=== PATIENT | female | born 1945 | race Caucasian/White ===

== ENCOUNTER 2017-05-20 11:57 | Observation (INO) | payer MEDICARE, MEDICAID, SELFPAY | END 2017-05-21 13:00 | disposition home or self-care (01) | PROVIDERS: Admitting Provider Internal Medicine Adolescent Medicine; Emergency Provider Family Medicine; Visit Provider Internal Medicine Adolescent Medicine | DX: J18.9 Pneumonia, unspecified organism (principal); I10 Essential (primary) hypertension; Z72.0 Tobacco use; Z95.820 Peripheral vascular angioplasty status with implants and grafts; I73.9 Peripheral vascular disease, unspecified; R06.09 Other forms of dyspnea; N39.0 Urinary tract infection, site not specified | CPT/HCPCS: 36415; 71010; 71020; 80048; 80053; 81001; 83605; 83880; 85025; 86609; 87040; 87086; 87088; 87186; 87205; 93005; 94640; 96361; 96365; 96367; 96375; 99285; G0378 ==

== ENCOUNTER → 2017-05-31 13:53 | Outpatient (CLI) | payer MEDICARE, MEDICAID, SELFPAY ==
[2017-05-31 16:26] LABS: Anion Gap 12.3 mEq/L (5-15); Blood Urea Nitrogen 14 mg/dL (7-18); Carbon Dioxide 27 mmol/L (21.0-32.0); Chloride 104 mmol/L (98-107); Creatinine,Serum 1.23 mg/dL (0.55-1.02); Estimated Glomerular Filt Rate 43 ml/min (>60); GFR (African American) 52 ML/MIN (>60); Glucose 88 mg/dL (74-106); Potassium 3.3 mmoL/L (3.5-5.1); Sodium 140 mmol/L (136-145)
== END ==
PROVIDERS: PCP Internal Medicine Adolescent Medicine; Visit Provider Internal Medicine Adolescent Medicine
DX: J18.9 Pneumonia, unspecified organism (principal); R94.4 Abnormal results of kidney function studies
CPT/HCPCS: 36415; 80048

== ENCOUNTER 2017-08-06 15:15 | Emergency (ER) | payer MEDICARE, MEDICAID, SELFPAY ==
[2017-08-06 15:16] VITALS: BP 137/85; PULSE 61; RESP 18; TEMP 36.4; O2SAT 98; BMI 21.9
--- NOTE | 2017-08-06 16:53 | HMH.EDGENADL ---
ED Disposition Clinical Impression: Chronic left hip pain Disposition: Home, Self-Care Condition on Discharge: Good Instructions: DI for Chronic Pain -- Adult Additional Instructions: Rx Medrol dosepak; plain Tylenol is cleared via the liver so you may try that over the counter. Continue to call your insurance company and new PCP regarding chronic pain issues; perhaps your insurance company could also help you get in to see a painting technician if they have one they could refer you to in the meantime; follow up with Dr. Tuttle for definitive replacement. Prescriptions: methylPREDNISolone [Medrol] 4 mg PO DAILY #1 tab.ds.pk Referrals: Provider,Referral, [Primary Care Provider] - - Critical Care Critical Care Time: No Attestation: On 08/06/17, the high probability of a clinically significant, sudden or life threatening deterioration of the following system(s) required my full and direct attention, intervention and personal management. The time I documented below is in addition to time spent performing reported procedures but includes the following listed in this critical care notation. Medical Decision Making - [place] Inquiry Pt receiving controlled substance: No (d/w pt cannot refill chronic pain medications needs f/u PCP; offered Medrol) Vital Signs: 08/06/17 15:16 Temperature 97.6 F Temperature Source Oral Pulse Rate [Right Brachial] 61 Respiratory Rate 18 Blood Pressure [Right Arm] 137/85 Blood Pressure Mean [Right Arm] 102 Blood Pressure Source [Right Arm] Automatic Cuff Blood Pressure Position [Right Arm] Sitting 02 Sat by Pulse Oximetry 98 Oxygen Delivery Method Room Air General Adult HPI - General Chief complaint: PAIN Stated complaint: hip pain Time Seen by Provider: 08/06/17 16:00 Mode of Arrival: Ambulatory Source of Information: Patient Limitations: No Limitations Description of Symptoms (Recalled from ER Triage Doc. by RN): Pt reports L hip pain, pt reports is to have hip replacement. Pt reports has been being medicated per Dr. Koehler's office but recently switched insurances and was told that they do not accept her insurance. Pt reports contacted Dr. Barton's office but was told they could not prescribe her pain medication until after her surgery. Pt has been taking [place] 5/325 mg po BID, states has only been taking 0.5 tablet at time BID. - History of Present Illness HPI narrative: Chronic pain syndrome, out of [place], insurance issues requiring change of PCP and unable to get in for appointment; surgery for L hip delayed due to dental surgery; patient denies any acute problems but has chronic left hip pain. Due for replacement per Dr. Tuttle. - Related Data Home Medications Medication Instructions Recorded Confirmed Atenolol [Atenolol 50mg Tab] 50 mg PO DAILY 08/06/17 08/06/17 Clopidogrel Bisulfate [Plavix 75mg 75 mg PO DAILY 08/06/17 08/06/17 Tab] Hydrocodone/Acetaminophen 1 each PO BID 08/06/17 08/06/17 [Hydrocodone-Acetamin 5-325 mg] Lisinopril/Hydrochlorothiazide 1 tab PO DAILY 08/06/17 08/06/17 [Lisinopril-Hctz 10-12.5 mg Tab] Pravastatin Sodium [Pravachol] 20 mg PO HS 08/06/17 08/06/17 Trazodone HCl [Desyrel 50mg tablet] 50 mg PO HS 08/06/17 08/06/17 Previous Rx's Medication Instructions Recorded methylPREDNISolone [Medrol] 4 mg PO DAILY #1 tab.ds.pk 08/06/17 Allergies Allergy/AdvReac Type Severity Reaction Status Date / Time levofloxacin [From LEVAQUIN] Allergy Intermediate I-RASH Verified 08/06/17 15:34 codeine [CODEINE] Allergy Mild DIARRHEA, Verified 08/06/17 15:34 VOMITING [facility] History Medical History: Denies:: Diabetes Mellitus Type 1, Diabetes Mellitus Type 2 - Social History Smoking Status: Current some day smoker Tobacco Type: cigarettes Alcohol Intake: never - Psychiatric History Expresses thoughts of harming self/others: None Suicide Plan Description: No Plan ROS Obtained: Yes All systems reviewed & n
--- NOTE | 2017-08-06 16:57 | ED_ITS ---
ED Disposition Clinical Impression: Chronic left hip pain Disposition: Home, Self-Care Condition on Discharge: Good Instructions: DI for Chronic Pain -- Adult Additional Instructions: Rx Medrol dosepak; plain Tylenol is cleared via the liver so you may try that over the counter. Continue to call your insurance company and new PCP regarding chronic pain issues; perhaps your insurance company could also help you get in to see a shipyard painter if they have one they could refer you to in the meantime; follow up with Dr. Tuttle for definitive replacement. Prescriptions: methylPREDNISolone [Medrol] 4 mg PO DAILY #1 tab.ds.pk Referrals: Provider,Referral, [Primary Care Provider] - - Critical Care Critical Care Time: No Attestation: On 08/06/17, the high probability of a clinically significant, sudden or life threatening deterioration of the following system(s) required my full and direct attention, intervention and personal management. The time I documented below is in addition to time spent performing reported procedures but includes the following listed in this critical care notation. Medical Decision Making - [place] Inquiry Pt receiving controlled substance: No (d/w pt cannot refill chronic pain medications needs f/u PCP; offered Medrol) Vital Signs: 08/06/17 15:16 Temperature 97.6 F Temperature Source Oral Pulse Rate [Right Brachial] 61 Respiratory Rate 18 Blood Pressure [Right Arm] 137/85 Blood Pressure Mean [Right Arm] 102 Blood Pressure Source [Right Arm] Automatic Cuff Blood Pressure Position [Right Arm] Sitting 02 Sat by Pulse Oximetry 98 Oxygen Delivery Method Room Air General Adult HPI - General Chief complaint: PAIN Stated complaint: hip pain Time Seen by Provider: 08/06/17 16:00 Mode of Arrival: Ambulatory Source of Information: Patient Limitations: No Limitations Description of Symptoms (Recalled from ER Triage Doc. by RN): Pt reports L hip pain, pt reports is to have hip replacement. Pt reports has been being medicated per Dr. Koehler's office but recently switched insurances and was told that they do not accept her insurance. Pt reports contacted Dr. Barton's office but was told they could not prescribe her pain medication until after her surgery. Pt has been taking [place] 5/325 mg po BID, states has only been taking 0.5 tablet at time BID. - History of Present Illness HPI narrative: Chronic pain syndrome, out of [place], insurance issues requiring change of PCP and unable to get in for appointment; surgery for L hip delayed due to dental surgery; patient denies any acute problems but has chronic left hip pain. Due for replacement per Dr. Tuttle. - Related Data Home Medications Medication Instructions Recorded Confirmed Atenolol [Atenolol 50mg Tab] 50 mg PO DAILY 08/06/17 08/06/17 Clopidogrel Bisulfate [Plavix 75mg 75 mg PO DAILY 08/06/17 08/06/17 Tab] Hydrocodone/Acetaminophen 1 each PO BID 08/06/17 08/06/17 [Hydrocodone-Acetamin 5-325 mg] Lisinopril/Hydrochlorothiazide 1 tab PO DAILY 08/06/17 08/06/17 [Lisinopril-Hctz 10-12.5 mg Tab] Pravastatin Sodium [Pravachol] 20 mg PO HS 08/06/17 08/06/17 Trazodone HCl [Desyrel 50mg tablet] 50 mg PO HS 08/06/17 08/06/17 Previous Rx's Medication Instructions Recorded methylPREDNISolone [Medrol] 4 mg PO DAILY #1 tab.ds.pk 08/06/17 Allergies
[2017-08-06 17:06] VITALS: BP 142/83; PULSE 70; RESP 18; TEMP 36.6; O2SAT 99
== END 2017-08-06 17:05 | disposition home or self-care (01) ==
PROVIDERS: Emergency Provider Emergency Medicine
DX: M25.552 Pain in left hip (principal); I10 Essential (primary) hypertension; E78.5 Hyperlipidemia, unspecified; I73.9 Peripheral vascular disease, unspecified; N28.9 Disorder of kidney and ureter, unspecified; F41.8 Other specified anxiety disorders; Z88.1 Allergy status to other antibiotic agents; Z88.6 Allergy status to analgesic agent; F17.210 Nicotine dependence, cigarettes, uncomplicated
CPT/HCPCS: 99281

== ENCOUNTER → 2017-11-27 10:11 | Outpatient (POV) | payer MEDICARE, MEDICAID, SELFPAY ==
[2017-11-27 10:35] VITALS: BP 152/81; PULSE 61; RESP 18
--- NOTE | 2017-11-27 13:39 | HMH.PMCON ---
Assessment and Plan (1) Degenerative joint disease (DJD) of hip Current visit: Yes Status: Chronic Category: Medical Code(s): M16.9 - Osteoarthritis of hip, unspecified (2) Chronic left hip pain Current visit: No Status: Chronic Category: Medical Code(s): M25.552 - Pain in left hip; G89.29 - Other chronic pain - Assessment and plan all Dx Assessment and Plan for all problems:: We will schedule a left hip joint injection for the patient. I also gave her information on DRG stimulation. I will follow-up with this patient after her injection we will reassess her symptoms at that time. Patient states she will be returning to her PCP to discuss medication management. This note was dictated using voice recognition software and may contain errors or omissions HPI - Data of Consult Consult date: 11/27/17 Requesting Physician: Michaelle Carter APRN Primary Care Provider: Elmer Hyatt Family Provider: Iraj Koehler MD - Consult Narrative Reason for consult: Left hip pain History of present illness: Ms. Santoro is a 72 year old female who presents today for consultation in regards to her left hip pain. Patient states that her pain is a 7 out of 10 today. She states that walking, sitting for long periods increases her pain while rest decreases her pain. She states her pain is constant and achy in nature. Sometimes it is sharp. Patient had injections in the past with significant relief. Patient does not report any physical therapy. Patient was being seen by doctors in [place] however she felt they were not taking care of her the way she would like to have been. Patient is currently going to [place] for her primary care provider along with her surgeon. Patient states she is a surgical candidate with her left hip. And plans to do this in the fall. Patient states that she is in need of pain medication to help control her pain until then. Patient and I had a discussion that it is not our policy to do medication management. Patient understands. We did discuss potentially DRG stimulation to help with her hip pain postsurgically. Patient is interested in this and would like some information. Patient's currently on [place] 5 mg 1 p.o. 3 times daily from her primary care physician she states that she does have to take a tablet and a half and she runs out at times. Patient states she would like a stronger pain medication. Patient is also interested in moving forward with some injections in her left hip to help with the pain until surgery I believe that this would be beneficial for her. Is gotten good relief from injections in the past from Dr. Barton. CC: Michaelle Carter AUT[employer] MACHINIST [facility] History I have reviewed the patient's past medical history: Yes Medical History: Reports:: Aneurysm Denies:: Diabetes Mellitus Type 1, Diabetes Mellitus Type 2 Other Medical History: Reports: Arthritis - *Social History Smoking Status: Current every day smoker Tobacco Type: cigarettes Alcohol Intake: former Occupational Status: retired Housing: house - Psychiatric History Expresses thoughts of harming self/others: None Suicide Plan Description: No Plan *Family Hx:: No significant family history Review of Systems - Review of Systems ROS General: no recent weight change, no fever, no sleep disturbances Respiratory: no cough, no shortness of air, no recurring pulmonary infections Cardiovascular/Peripheral Vascular: No chest pain, No palpitations, no edema, no shortness of breath. Gastrointestinal: no incontinence, normal bowel movements reported Genitourinary: no incontinence Musculoskeletal: Left hip pain Psychiatric: normal mood/ affect Neurological: [denies weakness in extremities], [denies balance issues] Meds Home Medications Medication Instructions Recorded Confirmed Type Atenolol [Atenolol 50mg Tab] 50 mg PO DAILY 08/06/17 08/06/17 History Clopidogrel Bisulfate [Plavix 75mg 75 mg PO JOSE LUIS
--- NOTE | 2017-11-27 13:45 | P.CONS_ITS ---
Assessment and Plan (1) Degenerative joint disease (DJD) of hip Current visit: Yes Status: Chronic Category: Medical Code(s): M16.9 - Osteoarthritis of hip, unspecified (2) Chronic left hip pain Current visit: No Status: Chronic Category: Medical Code(s): M25.552 - Pain in left hip; G89.29 - Other chronic pain - Assessment and plan all Dx Assessment and Plan for all problems:: We will schedule a left hip joint injection for the patient. I also gave her information on DRG stimulation. I will follow-up with this patient after her injection we will reassess her symptoms at that time. Patient states she will be returning to her PCP to discuss medication management. This note was dictated using voice recognition software and may contain errors or omissions HPI - Data of Consult Consult date: 11/27/17 Requesting Physician: Michaelle Carter APRN Primary Care Provider: Elmer Hyatt Family Provider: Iraj Koehler MD - Consult Narrative Reason for consult: Left hip pain History of present illness: Ms. Santoro is a 72 year old female who presents today for consultation in regards to her left hip pain. Patient states that her pain is a 7 out of 10 today. She states that walking, sitting for long periods increases her pain while rest decreases her pain. She states her pain is constant and achy in nature. Sometimes it is sharp. Patient had injections in the past with significant relief. Patient does not report any physical therapy. Patient was being seen by doctors in [place] however she felt they were not taking care of her the way she would like to have been. Patient is currently going to [place] for her primary care provider along with her surgeon. Patient states she is a surgical candidate with her left hip. And plans to do this in the fall. Patient states that she is in need of pain medication to help control her pain until then. Patient and I had a discussion that it is not our policy to do medication management. Patient understands. We did discuss potentially DRG stimulation to help with her hip pain postsurgically. Patient is interested in this and would like some information. Patient's currently on [place] 5 mg 1 p.o. 3 times daily from her primary care physician she states that she does have to take a tablet and a half and she runs out at times. Patient states she would like a stronger pain medication. Patient is also interested in moving forward with some injections in her left hip to help with the pain until surgery I believe that this would be beneficial for her. Is gotten good relief from injections in the past from Dr. Barton. CC: Michaelle Carter TRAVELING NURSE [facility] History I have reviewed the patient's past medical history: Yes Medical History: Reports:: Aneurysm Denies:: Diabetes Mellitus Type 1, Diabetes Mellitus Type 2 Other Medical History: Reports: Arthritis - *Social History Smoking Status: Current every day smoker Tobacco Type: cigarettes Alcohol Intake: former Occupational Status: retired Housing: house - Psychiatric History Expresses thoughts of harming self/others: None Suicide Plan Description: No Plan *Family Hx:: No significant family history Review of Systems - Review of Systems ROS General: no recent weight change, no fever, no sleep disturbances Respiratory: no cough, no shortness of air, no recurring pulmonary infections Cardiovascular/Peripheral Vascular: No chest pain, No palpitations, no edema, no shortness of breath. Gastrointestinal: no incontinence, normal bowel movements reported Genitourina
--- NOTE | 2017-12-24 13:25 | PC.PHONENOTE ---
Pt called office to let us know that she will not be showing up to her appointment today because the steroid injection Dr. Dubois preformed on her did not work and she will not be returning to our clinic anymore.
== END ==
PROVIDERS: Family Provider Internal Medicine Adolescent Medicine; PCP Nurse Practitioner Family; Visit Provider Clinical Nurse Specialist Family Health
DX: M25.552 Pain in left hip (principal); M16.9 Osteoarthritis of hip, unspecified
CPT/HCPCS: 99202

== ENCOUNTER → 2018-01-22 13:03 | Outpatient (POV) | payer MEDICARE, MEDICAID, SELFPAY | PROVIDERS: Family Provider Internal Medicine Adolescent Medicine; PCP Nurse Practitioner Family; Visit Provider Internal Medicine | DX: Z00.00 Encounter for general adult medical examination without abnormal findings (principal) ==

== ENCOUNTER → 2018-02-13 15:11 | Outpatient (CLI) | payer MEDICARE, MEDICAID, SELFPAY ==
--- NOTE | 2018-02-13 15:14 | MM_ITS ---
MM Dig screening mamm BI w/CAD CAD Screening COMPARISON: Digital mammograms with CAD 03/27/2016 and 03/03/2014 INDICATION: There is a history of breast cancer patient's mother diagnosed at age 70. TECHNIQUE: Standard CC and MLO images were obtained. R2 CAD reviewed. FINDINGS: Prominent somewhat heterogenic fibroglandular densities are seen in the subareolar regions and central portions of both breasts. There are stable asymmetric densities outer quadrants of both breast best seen on the CC projections as noted previously. There are few benign-appearing calcifications in each breast. There is no suspicious lesion and there are no suspicious microcalcifications. IMPRESSION: Heterogenic breast density with no suspicious lesion seen BI-RADS Category: 2 Benign Finding(s) RECOMMENDED FOLLOW-UP: 1YR - 1 YEAR FOLLOW-UP (A letter has been sent to the patient regarding results of the study.)
== END ==
PROVIDERS: Family Provider Internal Medicine Adolescent Medicine; PCP Nurse Practitioner Family; Visit Provider Internal Medicine Infectious Disease
DX: Z12.31 Encounter for screening mammogram for malignant neoplasm of breast (principal)
CPT/HCPCS: 77067

== ENCOUNTER → 2018-04-23 14:10 | Outpatient (POV) | payer MEDICARE, MEDICAID, SELFPAY | PROVIDERS: Visit Provider Internal Medicine | DX: Z00.00 Encounter for general adult medical examination without abnormal findings (principal) ==

== ENCOUNTER 2018-06-11 09:50 | Inpatient (IN) ==
[2018-06-11 10:07] LABS: Basophils % 0.3 % (0.1-2.0); Eosinophils % 0.2 % (0.1-12.0); Hematocrit 44.9 % (37.0-47.0); Hemoglobin 14.4 g/dL (12.2-16.2); Lymphocytes # 0.9 K/mm3 (0.7-4.5); Lymphocytes % 6.8 % (10-50); Mean Corpuscular HGB Conc 32.1 g/dL (31.8-35.4); Mean Platelet Volume 7.6 fl (7.4-10.4); Monocytes # 0.5 K/mm3 (0.1-1.0); Monocytes % 3.7 % (1.7-9.3); Neutrophils # 12.4 K/mm3 (1.8-7.8); Platelet Count 218 K/mm3 (142-424); Red Blood Count 5.35 M/mm3 (4.20-5.40); Red Cell Distribution Width 16.1 % (11.5-17.5)
--- NOTE | 2018-06-11 10:09 | Emergency Department Note ---
ED Disposition Clinical Impression: Healthcare-associated pneumonia, Acute respiratory failure with hypoxia Disposition: Still a Patient Condition on Discharge: Fair Referrals: Provider,Referral, [Primary Care Provider] - - Critical Care Critical Care Time: Yes Attestation: On 06/11/18, the high probability of a clinically significant, sudden or life threatening deterioration of the following system(s) required my full and direct attention, intervention and personal management. The time I documented below is in addition to time spent performing reported procedures but includes the following listed in this critical care notation. Vital system(s) involved:: Respiratory Failure My critical care processes included: Assessment & monitoring of V/S, Initial and Re-exams, Data Review/Interpretation, Coordinating Care, Medication Orders and management, Documentation Medical Decision Making - [place] Inquiry Pt receiving controlled substance: No Vital Signs: 06/11/18 09:59 06/11/18 10:29 06/11/18 10:30 Temperature 98.5 F Temperature Source Oral Pulse Rate [Left Radial] 103 H Respiratory Rate 32 H Blood Pressure [Right Arm] 163/93 H Blood Pressure Mean [Right Arm] 116 Blood Pressure Source [Right Arm] Automatic Cuff Blood Pressure Position [Right Arm] Sitting 02 Sat by Pulse Oximetry 96 85 L 97 Oxygen Delivery Method Nasal Cannula Room Air Nasal Cannula Oxygen Flow Rate (LPM) 4 4 06/11/18 10:48 06/11/18 11:00 Temperature Temperature Source Pulse Rate [Left Radial] 99 H 98 H Respiratory Rate Blood Pressure [Right Arm] 148/90 H 148/90 H Blood Pressure Mean [Right Arm] 109 109 Blood Pressure Source [Right Arm] Automatic Cuff Automatic Cuff Blood Pressure Position [Right Arm] Supine Supine 02 Sat by Pulse Oximetry 95 96 Oxygen Delivery Method Oxygen Flow Rate (LPM) - Lab Data Lab Results 06/11/18 09:53: Specimen Source L brachial, O2 % 4 lpm, ABG pH 7.46 H, ABG pCO2 35.8, ABG pO2 69.8 L, ABG HCO3 25.0, ABG Total CO2 26.1, ABG O2 Saturation 94, ABG Base Excess 1.2 06/11/18 09:55: WBC 14.0 H, RBC 5.35, Hgb 14.4, Hct 44.9, MCV 84.0, MCH 27.0, MCHC 32.1, RDW 16.1, Plt Count 218, MPV 7.6, Neut % (Auto) 89.0 H, Lymph % (Auto) 6.8 L, [place] % (Auto) 3.7, Eos % (Auto) 0.2, Baso % (Auto) 0.3, Neut # (Auto) 12.4 H, Lymph # (Auto) 0.9, [place] # (Auto) 0.5, Eos # (Auto) 0.0, Baso # (Auto) 0.0, Total Counted 100, Neutrophils % (Manual) 88 H, Lymphocytes % (Manual) 7 L, Monocytes % (Manual) 5, Platelet Estimate Normal, Hypochromasia 1+ 06/11/18 09:55: Sodium 132 L, Potassium 3.4 L, Chloride 94 L, Carbon Dioxide 26, Anion Gap 15.4 H, BUN 14, Creatinine 0.85, Estimated Creat Clear 40, Estimated GFR 66, Est GFR ( Amer) 80, Glucose 121 H, Calcium 9.9, Troponin I < 0.02 06/11/18 09:55: Total Bilirubin 0.9, Direct Bilirubin 0.3 H, Indirect Bilirubin 0.6, AST 18, ALT 14, Alkaline Phosphatase 117 H, Total Protein 7.1, Albumin 3.1 L 06/11/18 09:55: B-Natriuretic Peptide 563 H 06/11/18 10:37: Lactate 2.9 H Result diagrams: 06/11/18 09:55 06/11/18 09:55 Orders (Tests/Meds): ED MEDICATIONS Generic Name Dose Route Start Last Admin Trade Name Freq PRN Reason Stop Dose Admin Albuterol/Ipratropium 3 ml 06/11/18 14:00 Duoneb 3ml Neb IH 07/11/18 13:59 QIDRT BEE Cefepime HCl 2 gm/ Sodium 100 mls @ 200 mls/hr 06/11/18 11:00 06/11/18 10:57 Chloride IV 06/25/18 10:59 200 mls/hr Q12H BEE Administration Protocol Vancomycin HCl 750 mg/ Sodium 250 mls @ 125 mls/hr 06/11/18 11:00 Chloride IV 06/25/18 10:59 Q24H BEE Discontinued Medications Generic Name Dose Route Start Last Admin Trade Name Freq PRN Reason Stop Dose Admin Enoxaparin Sodium 50 mg 06/11/18 10:47 Lovenox 60mg/0.6ml Syringe SQ 06/11/18 10:48 ONCE ONE Iopamidol 75 ml 06/11/18 11:16 06/11/18 11:16 [id number]; 75ml Vial IV 06/11/18 11:17 75 ml ONCE ONE Administration Protocol Miscellaneous 1 each 06/11/18 11:00 Vancomycin Consult Request NOTAPPLIC 06/11/18 22:47 [facility] Sodium Chloride 10 ml 06/11/18 11:16 06/11/18 11:16 Rad-Saline Flush 10ml Syringe IV 06/11/18 11:17 10 ml ONCE ONE Administration ORDERS Category Date Time Status Blood Culture Stat Micro 06/11/18 10:37 Received ECG Request by /Alexis Stat Y 06/11/18 09:51 Ordered - Radiology Data #1 Image(s): Chest Image Reviewed: Yes I reviewed the patient's radiology image, Yes I discussed the image results w/the radiologist New airspace disease left upper lobe. Increased interstitial markings in the bases, small right pleural effusion. Most consistent with pneumonia. - CT Data CT Scan: Chest (CTA) Time Received: 12:[address] Reviewed: Yes: I have viewed the radiologist's interpretation Findings Narrative: IMPRESSION: 1. No evidence of pulmonary embolus or thoracic aortic aneurysm. 2. 3.5 cm infrarenal abdominal aortic aneurysm incompletely imaged. 3. 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 There is increased density in the peribronchial region in the hilar area on both sides. This could be inflammatory or neoplastic. 4. Medium right pleural effusion with consolidation in both lung bases posteriorly 5. Enlarging pleural-based lesion in the left upper lobe anteriorly now with some cavitation. This could be neoplastic or infectious in nature. Dictated By: Alfonzo Darden MD Signed By: <Electronically signed by Alfonzo Darden MD in [place]> 06/11/18 1139 - ECG Data Tracing #1 EKG interpreted by Reza Hylton MD: Rhythm: sinus Rate: 98 [place]: normal Ectopy: none Conduction: Prolonged QT ST Segment Changes: Nonspecific T Wave Changes: Nonspecific Q Waves: none Poor R wave progression - Physician Consults Physician Consulted: Sound Time: 10:48 Reason -: Admission Comment/Response: Agrees to admit the patient to the hospital. We discussed the patient's clinical information, including history, exam, laboratory and radiology results and ED course. Per hospital procedure, I will write temporary bridge inpatient orders on the patient. Specific orders requested by the admitting physician: CTA scan pending at this time. Requests a loading dose of Lovenox pending CT results. Cefepime and vancomycin. - Reevaluation(s) Time: 10:31 Reevaluation #1: Discussed diagnosis of pneumonia with patient. I recommended admission. She prefers to be discharged. I advised her that this was hospital associated pneumonia and should be treated as an inpatient with IV antibiotics. I also took her off of oxygen and her pulse ox dropped to 84%. I put her back on oxygen. She is agreeable to admission. Medical Decision Narrative: Discharge summary obtained from [facility]. Final diagnoses were pericardial effusion and protein energy malnutrition. CT chest was negative. Autoimmune workup was negative. She had an episode of atrial fibrillation with rapid ventricular response. Pericardiocentesis was performed and she had a drain placed which was later removed. Fluid on cytology was positive for adenocarcinoma versus transitional cell. Hospitalized for 6 days. General Adult HPI - General Chief complaint: Shortness of Breath/Dyspnea Stated complaint: sob Time Seen by Provider: 06/11/18 10:00 Mode of Arrival: EMS Limitations: No Limitations Description of Symptoms (Recalled from ER Triage Doc. by RN): to ed per squad with c/o sob, productive cough with green sputum, chills x 2months. squad called today due to progressive generalized weakness, fatique. pt dx with bladder ca 2 weeks ago. - History of Present Illness HPI narrative: Brought in by ambulance. Chief complaint is shortness of breath. Says this is been going on for a couple of months. Also has had a cough for a long time, productive of sputum, no hemoptysis. Denies chest pain or fever. Denies vomiting or diarrhea. Feels generally weak and tired. Seen by me in this emergency department on 03/31/18 and transferred to [facility]. She had pneumonia, pleural effusion, pericardial effusion. She says that the fluid was drained off of her heart. She was diagnosed with bladder cancer. She is not certain whether she has any metastases to heart/pericardium or lung. She says she was supposed to have her first dose of chemotherapy yesterday, but could not because she was too sick. She goes to the [facility]. Her primary care doctor is Dr. Wilburn in [place]. No leg pain or swelling. No urinary symptoms. - Related Data Home Medications Medication Instructions Recorded Confirmed Atenolol [Atenolol 50mg Tab] 50 mg PO DAILY 08/06/17 06/11/18 Clopidogrel Bisulfate [Plavix 75mg 75 mg PO DAILY 08/06/17 06/11/18 Tab] Lisinopril/Hydrochlorothiazide 1 tab PO DAILY 08/06/17 06/11/18 [Lisinopril-Hctz 10-12.5 mg Tab] Trazodone HCl [Desyrel 50mg tablet] 50 mg PO HS 08/06/17 06/11/18 Atorvastatin Calcium [Atorvastatin 40 mg PO DAILY 06/11/18 06/11/18 40mg Tab] Pantoprazole Sodium [Protonix 40mg 40 mg PO DAILY 06/11/18 06/11/18 tablet] Allergies Allergy/AdvReac Type Severity Reaction Status Date / Time levofloxacin [From LEVAQUIN] Allergy Intermediate I-RASH Verified 08/15/17 13:53 codeine [CODEINE] Allergy Mild DIARRHEA, Verified 08/15/17 13:53 VOMITING [facility] History - Hepatitis A Screen Drug use history?: No High risk sexual behaviors?: No History of sexually transmitted infection?: No Currently employed?: No Childcare worker?: No Do you have indoor plumbing?: Yes Do you have electricity?: Yes Attestation statement:: This patient has been screened for Hepatitis A risk factors. I have reviewed the patient's past medical history: Yes Medical History: Reports:: Aneurysm, Cancer (Bladder) Denies:: Diabetes Mellitus Type 1, Diabetes Mellitus Type 2, Seizures Other Medical History: Reports: Arthritis Laterality Cases: Right: Other Other Surgeries: Yes: Appendectomy, Cholecystectomy, Tubal Ligation, Other (stent in RLE) Amputation: No Fractures: No - Social History Smoking Status: Current every day smoker Tobacco Type: cigarettes # Packs/Day (cigarettes): 1 Alcohol Intake: never Alcohol Intake Frequency:: holidays/special occasions only Occupational Status: retired Housing: house - Psychiatric History Expresses thoughts of harming self/others: None Suicide Plan Description: No Plan Family Hx:: No significant family history ROS Obtained: Yes All systems reviewed & no additional complaints - Constitutional Constitutional: Reports fatigue, Denies fever(s), Reports malaise - ENT Ears, Nose, Mouth, and Throat: Reports nasal discharge - Cardiovascular Cardiovascular: Denies chest pain - Respiratory Respiratory: Yes cough, Yes dyspnea, Yes excessive phlegm production, No coughing up blood - Gastrointestinal Gastrointestingal: Reports: constipation. Denies: abdominal pain, diarrhea, nausea, vomiting - Genitourinary Female Genitourinary: Denies difficulty voiding Physical Exam - General General appearance: alert, in no apparent distress - Head Head exam: atraumatic, normocephalic - Eye Eye exam: Present: normal appearance, PERRL, EOMI - ENT ENT exam: Present: mucous membranes moist - Neck Neck exam: Present: normal inspection, trachea midline - Chest Chest inspection: Present: normal inspection, symmetric chest wall rise - Respiratory Respiratory exam: Present: other (crackles) - Cardiovascular Cardiovascular exam: Present: normal rhythm, tachycardia, normal heart sounds - Abdominal Exam Abdominal exam: Present: soft. Absent: distention, tenderness - Extremities Exam Extremities exam: Present: normal inspection, other (Cyanosis of left index finger. States it has been that way for some time. It was that way when she was seen at [facility] a week and a half ago.). Absent: pedal edema, calf tenderness - Neurological Exam Neurological exam: Present: alert, oriented X3 - Psychiatric Psychiatric exam: Present: normal affect, normal mood - Skin Skin exam: Present: warm, dry
[2018-06-11 10:20] LABS: ABG Base Excess 1.2 mmol/L (-2.4-2.3); ABG Oxygen Saturation 94 % (90-100); ABG PCO2 35.8 mmhg (35.0-45.0); ABG PH 7.46 mmol/L (7.35-7.45); ABG PO2 69.8 mmhg (80-100); ABG TCO2 26.1 mmhg (23-27)
[2018-06-11 10:21] LABS: Oxygen 4 LPM %
[2018-06-11 10:26] LABS: Anion Gap 15.4 mEq/L (5-15); Blood Urea Nitrogen 14 mg/dL (7-18); Calcium 9.9 mg/dL (8.5-10.1); Carbon Dioxide 26 mmol/L (21.0-32.0); Chloride 94 mmol/L (98-107); Glucose 121 mg/dL (74-106); Potassium 3.4 mmoL/L (3.5-5.1); Sodium 132 mmol/L (136-145)
[2018-06-11 10:33] LABS: Albumin Level 3.1 gm/dL (3.4-5.0); Bilirubin,Direct 0.3 mg/dL (0.0-0.2); Bilirubin,Indirect 0.6 mg/dL (0.0-0.9); Bilirubin,Total 0.9 mg/dL (0.2-1.0); Total Protein,Serum 7.1 gm/dL (6.4-8.2)
[2018-06-11 10:46] LABS: Lymphocytes % 7 % (10-50); Monocytes % 5 % (2-9); Neutrophils % 88 % (42-76); Total Cells Counted 100
[2018-06-11 10:47] LABS: Hypochromasia 1+
--- NOTE | 2018-06-11 11:12 | Pharmacy Consult Notes ---
- Pharmacy Consult Date: 06/11/18 Time: 11:07 Referring provider: DR. IGLESIAS Reason for Consult:: VANCOMYCIN DOSING Allergies and ADEs:: Allergies Allergy/AdvReac Type Severity Reaction Status Date / Time levofloxacin [From LEVAQUIN] Allergy Intermediate I-RASH Verified 08/15/17 13:53 codeine [CODEINE] Allergy Mild DIARRHEA, Verified 08/15/17 13:53 VOMITING Home Medications:: Home Medications Medication Instructions Recorded Confirmed Type Atenolol [Atenolol 50mg Tab] 50 mg PO DAILY 08/06/17 06/11/18 History Clopidogrel Bisulfate [Plavix 75mg 75 mg PO DAILY 08/06/17 06/11/18 History Tab] Lisinopril/Hydrochlorothiazide 1 tab PO DAILY 08/06/17 06/11/18 History [Lisinopril-Hctz 10-12.5 mg Tab] Trazodone HCl [Desyrel 50mg tablet] 50 mg PO HS 08/06/17 06/11/18 History Atorvastatin Calcium [Atorvastatin 40 mg PO DAILY 06/11/18 06/11/18 History 40mg Tab] Pantoprazole Sodium [Protonix 40mg 40 mg PO DAILY 06/11/18 06/11/18 History tablet] Height: 1.68 m Weight: 49.895 kg Laboratory Results:: Laboratory Results - last 24 hr 06/11/18 09:53: Specimen Source L brachial, O2 % 4 lpm, ABG pH 7.46 H, ABG pCO2 35.8, ABG pO2 69.8 L, ABG HCO3 25.0, ABG Total CO2 26.1, ABG O2 Saturation 94, ABG Base Excess 1.2 06/11/18 09:55: WBC 14.0 H, RBC 5.35, Hgb 14.4, Hct 44.9, MCV 84.0, MCH 27.0, MCHC 32.1, RDW 16.1, Plt Count 218, MPV 7.6, Neut % (Auto) 89.0 H, Lymph % (Auto) 6.8 L, [place] % (Auto) 3.7, Eos % (Auto) 0.2, Baso % (Auto) 0.3, Neut # (Auto) 12.4 H, Lymph # (Auto) 0.9, [place] # (Auto) 0.5, Eos # (Auto) 0.0, Baso # (Auto) 0.0, Total Counted 100, Neutrophils % (Manual) 88 H, Lymphocytes % (Manual) 7 L, Monocytes % (Manual) 5, Platelet Estimate Normal, Hypochromasia 1+ 06/11/18 09:55: Sodium 132 L, Potassium 3.4 L, Chloride 94 L, Carbon Dioxide 26, Anion Gap 15.4 H, BUN 14, Creatinine 0.85, Estimated Creat Clear 40, Estimated GFR 66, Est GFR ( Amer) 80, Glucose 121 H, Calcium 9.9, Troponin I < 0.02 06/11/18 09:55: Total Bilirubin 0.9, Direct Bilirubin 0.3 H, Indirect Bilirubin 0.6, AST 18, ALT 14, Alkaline Phosphatase 117 H, Total Protein 7.1, Albumin 3.1 L 06/11/18 09:55: B-Natriuretic Peptide 563 H Medical History: Reports:: Aneurysm, Cancer (Bladder) Denies:: Diabetes Mellitus Type 1, Diabetes Mellitus Type 2, Seizures Assessment and Plan - Assessment and plan all Dx Assessment and Plan for all problems:: BASED ON PATIENT FACTORS, RECOMMEND INITIATING VANCOMYCIN AT 750MG IV EVERY 24 HOURS. PHARMACY WILL MONITOR AND ADJUST DOSE APPROPRIATE. -NAWAF HOFFMAN, SUNSHINED
--- NOTE | 2018-06-11 12:12 | History & Physical Report ---
*Admission Date: 06/11/18 <Shagufta Rodrigez - 06/11/18 13:48> *Chief complaint: Shortness of breath <Shagufta Rodrigez - 06/11/18 13:48> *History of present illness: Ms. Santoro is a 73-year-old female with a history of PMH of HTN, COPD, recent unintentional weight loss, and recent hospitalization in March 2018 at [facility] at which time she had a pericardiocentesis with positive cytology for adenocarcinoma versus transitional cell carcinoma who was brought in by ambulance to [facility] emergency room due to progressive shortness of breath and productive cough. She relates that the cough has been present for a long time and is productive of sputum but no hemoptysis. She denies chest pain or fever, vomiting or diarrhea. She generally feels weak and tired. She states she has not been eating and drinking very well for the last few weeks. She was seen in this emergency department on 03/31/18 and transferred to [facility]. She had pneumonia, pleural effusion, pericardial effusion. She says that the fluid was drained off of her heart. She was diagnosed with bladder cancer. She is not certain whether she has any metastases to heart/pericardium or lung. She says she was supposed to have her first dose of chemotherapy yesterday, but could not because she was too sick. She is going to the [facility]. Her primary care doctor is Dr. Wilburn in [place]. No leg pain or swelling. No urinary symptoms. The ER physician discussed diagnosis of pneumonia with the patient and recommended admission. Initially she preferred to be discharged. She was advised that she had a hospital associated pneumonia and needed to be treated as an inpatient with IV antibiotics. Her was removed temporarily O2 saturation dropped to 84%. She was then agreeable to admission. Discharge summary was obtained from [facility]. Final diagnoses were pericardial effusion and protein energy malnutrition. CT chest was negative. Autoimmune workup was negative. She had an episode of atrial fibrillation with rapid ventricular response. Pericardiocentesis was performed and she had a drain placed which was later removed. Fluid on cytology was positive for adenocarcinoma versus transitional cell. She was hospitalized for 6 days. At the time of this exam the patient has labored respiratory effort. She is unable to speak at times due to the shortness of breath. The congested cough was noted. She denies chest pain, heart palpitations, leg edema, nausea and vomiting. She has been voiding without difficulty. <Shagufta Rodrigez 06/11/18 13:48> [facility] History Medical History: Reports:: Aneurysm, Atrial Fibrillation (Brief and intermittent), Cancer (Bladder), Chronic Obstructive Pulmonary Disease (COPD), Hypertension, Peripheral Vascular Disease Denies:: Diabetes Mellitus Type 1, Diabetes Mellitus Type 2, Seizures <Shagufta Rodrigez 06/11/18 13:48> Have you ever received a pneumonia vaccine?: Yes <Shagufta Rodrigez 06/11/18 12:12> Have you received a flu vaccine this season?: Yes <Shagufta Rodrigez 06/11/18 12:12> Other Medical History: Reports: Arthritis <Shagufta Rodrigez 06/11/18 13:48> Laterality Cases: Right: Other <Shagufta Rodrigez 06/11/18 12:12> Other Surgeries: Yes: Appendectomy, Cholecystectomy, Tubal Ligation, Other (stent in RLE) <Shagufta Rodrigez 06/11/18 12:12> Amputation: No <Shagufta Rodrigez 06/11/18 12:12> Fractures: No <Shagufta Rodrigez 06/11/18 12:12> - *Social History Educational Level: Completed College (Degree in marketing and business) <Shagufta Rodrigez 06/11/18 13:48> Smoking Status: Current every day smoker <Shagufta Rodrigez 06/11/18 12:12> Tobacco Type: cigarettes <Shagufta Rodrigez 06/11/18 12:12> # Packs/Day (cigarettes): 1 <Shagufta Rodrigez 06/11/18 12:12> Alcohol Intake: never <Shagufta Rodrigez 06/11/18 12:12> Alcohol Intake Frequency:: holidays/special occasions only <Shagufta Rodrigez 06/11/18 12:12> Occupational Status: retired <Shagufta Rodrigez 06/11/18 12:12> Housing: house <Shagufta Rodrigez 06/11/18 12:12> Travel in the last 8 weeks: None <Shagufta Rodrigez 06/11/18 12:12> - Psychiatric History Expresses thoughts of harming self/others: None <Shagufta Rodrigez 06/11/18 12:12> Suicide Plan Description: No Plan <Shagufta Rodrigez 06/11/18 12:12> *Family Hx:: Coronary Artery Disease <Shagufta Rodrigez 06/11/18 13:48> Review of Systems - Constitutional Reports lack of energy, Reports weakness, Reports weight loss, Denies fever(s) <Shagufta Rodrigez 06/11/18 13:48> - ENT Denies ear pain, Denies sore throat <Shagufta Rodrigez 06/11/18 13:48> - *Cardiovascular Reports shortness of breath, Denies chest pain, Denies irregular heart rhythm, Denies leg swelling <Shagufta Rodrigez 06/11/18 13:48> - *Respiratory Reports change in phlegm color, Reports chest congestion, Reports cough (Congested), Reports shortness of breath, Denies coughing up blood <Shagufta Rodrigez 06/11/18 13:48> - *Gastrointestinal Reports nausea, Denies abdominal pain, Denies vomiting <Shagufta Rodrigez 06/11/18 13:48> - *Genitourinary Denies difficulty urinating, Denies painful urination <Shagufta Rodrigez 06/11/18 13:48> - *Musculoskeletal Reports muscle weakness <Shagufta Rodrigez 06/11/18 13:48> - *Neurologic Reports weakness, Denies seizure-like activity, Denies headache(s) <Shagufta Rodrigez 06/11/18 13:48> Meds Home Medications Medication Instructions Recorded Confirmed Type Clopidogrel Bisulfate [Plavix 75mg 75 mg PO DAILY 08/06/17 06/11/18 History Tab] Lisinopril/Hydrochlorothiazide 1 tab PO DAILY 08/06/17 06/11/18 History [Lisinopril-Hctz 10-12.5 mg Tab] Trazodone HCl [Desyrel 50mg tablet] 50 mg PO HS 08/06/17 06/11/18 History Atenolol [Atenolol 25mg Tab] 25 mg PO DAILY 06/11/18 06/11/18 History Atorvastatin Calcium [Atorvastatin 40 mg PO DAILY 06/11/18 06/11/18 History 40mg Tab] Dexlansoprazole [Dexilant] 30 mg PO DAILY 06/11/18 06/11/18 History Montelukast Sodium [Montelukast 10 mg PO DAILY 06/11/18 06/11/18 History 10mg Tab] Pantoprazole Sodium [Protonix 40mg 40 mg PO DAILY 06/11/18 06/11/18 History tablet] Umeclidinium Brm/Vilanterol Tr 1 inh IH DAILY 06/11/18 06/11/18 History [Anoro Ellipta 62.5-25 Mcg INH] Venlafaxine HCl [Effexor Xr] 150 mg PO DAILY 06/11/18 06/11/18 History hydrOXYzine pamoate [Vistaril] 25 mg PO TID PRN 06/11/18 06/11/18 History <Sound,Colette - 06/12/18 11:39> Allergies Allergy/AdvReac Type Severity Reaction Status Date / Time levofloxacin [From LEVAQUIN] Allergy Intermediate I-RASH Verified 08/15/17 13:53 codeine [CODEINE] Allergy Mild DIARRHEA, Verified 08/15/17 13:53 VOMITING <Sound,Colette - 06/12/18 11:39> Exam Vital signs and Labs for Last 24 Hours: Temp Pulse Resp BP Pulse Ox 98.3 F 90 18 156/87 H 97 06/12/18 11:19 06/12/18 11:19 06/12/18 11:19 06/12/18 11:19 06/12/18 11:19 Laboratory Results - last 24 hr 06/11/18 15:07: Lactate 2.5 H 06/11/18 18:00: Lactate 3.2 H 06/12/18 08:21: WBC 9.8 D, RBC 4.53, Hgb 12.2 D, Hct 38.0, MCV 83.9, MCH 26.8 L, MCHC 31.9, RDW 16.1, Plt Count 216, MPV 8.0, Neut % (Auto) 86.5 H, Lymph % (Auto) 6.9 L, Hancock % (Auto) 5.5, Eos % (Auto) 0.9, Baso % (Auto) 0.2, Neut # (Auto) 8.5 H, Lymph # (Auto) 0.7, Hancock # (Auto) 0.5, Eos # (Auto) 0.1, Baso # (Auto) 0.0, Total Counted 100, Neutrophils % (Manual) 89 H, Band Neutrophils % 2.0, Lymphocytes % (Manual) 3 L, Atypical Lymphs % 1.0, Monocytes % (Manual) 5, Platelet Estimate Normal, RBC Morphology Normal <Sound,Colette - 06/12/18 11:39> Temp Pulse Resp BP Pulse Ox 98.5 F 98 H 32 H 148/90 H 96 06/11/18 09:59 06/11/18 11:00 06/11/18 09:59 06/11/18 11:00 06/11/18 11:00 Laboratory Results - last 24 hr 06/11/18 09:53: Specimen Source L brachial, O2 % 4 lpm, ABG pH 7.46 H, ABG pCO2 35.8, ABG pO2 69.8 L, ABG HCO3 25.0, ABG Total CO2 26.1, ABG O2 Saturation 94, ABG Base Excess 1.2 06/11/18 09:55: WBC 14.0 H, RBC 5.35, Hgb 14.4, Hct 44.9, MCV 84.0, MCH 27.0, MCHC 32.1, RDW 16.1, Plt Count 218, MPV 7.6, Neut % (Auto) 89.0 H, Lymph % (Auto) 6.8 L, Hancock % (Auto) 3.7, Eos % (Auto) 0.2, Baso % (Auto) 0.3, Neut # (Auto) 12.4 H, Lymph # (Auto) 0.9, Hancock # (Auto) 0.5, Eos # (Auto) 0.0, Baso # (Auto) 0.0, Total Counted 100, Neutrophils % (Manual) 88 H, Lymphocytes % (Manual) 7 L, Monocytes % (Manual) 5, Platelet Estimate Normal, Hypochromasia 1+ 06/11/18 09:55: Sodium 132 L, Potassium 3.4 L, Chloride 94 L, Carbon Dioxide 26, Anion Gap 15.4 H, BUN 14, Creatinine 0.85, Estimated Creat Clear 40, Estimated GFR 66, Est GFR ( Amer) 80, Glucose 121 H, Calcium 9.9, Troponin I < 0.02 06/11/18 09:55: Total Bilirubin 0.9, Direct Bilirubin 0.3 H, Indirect Bilirubin 0.6, AST 18, ALT 14, Alkaline Phosphatase 117 H, Total Protein 7.1, Albumin 3.1 L 06/11/18 09:55: B-Natriuretic Peptide 563 H 06/11/18 10:37: Lactate 2.9 H <Shagufta Rodrigez - 06/11/18 12:12> I & O for Last 24 hours: Intake & Output 06/09/18 06/10/18 06/11/18 06/12/18 11:59 11:59 11:59 11:59 Intake Total 1039 / 1039 Output Total 1000 / 1000 Balance Weight 110 lb 111 lb 3 oz <Colette Engle - 06/12/18 11:39> Intake & Output 06/09/18 06/10/18 06/11/18 06/12/18 11:59 11:59 11:59 11:59 Weight 110 lb <Shagufta Rodrigez - 06/11/18 12:12> Radiology Reports for the Last 24 Hours: 06/11/2018 chest x-ray IMPRESSION: Bilateral pneumonia with increasing nodularity in the left upper lobe which could be due to superimposed pneumonia or enlarging nodule. Consider chest CT for further evaluation. 06/11/2018 chest CTA IMPRESSION: 1. No evidence of pulmonary embolus or thoracic aortic aneurysm. 2. 3.5 cm infrarenal abdominal aortic aneurysm incompletely imaged. 3. 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 There is increased density in the peribronchial region in the hilar area on both sides. This could be inflammatory or neoplastic. 4. Medium right pleural effusion with consolidation in both lung bases posteriorly 5. Enlarging pleural-based lesion in the left upper lobe anteriorly now with some cavitation. This could be neoplastic or infectious in nature. <RainShagufta - 06/11/18 12:17> - Constitutional no acute distress, thin <RainShagufta Kyaw 06/11/18 13:48> Comments: Frail <RainShagufta 06/11/18 13:48> - *Routine HEENT Exam Head: Present: normocephalic, atraumatic <RodrigezShagufta Kyaw 06/11/18 13:48> Eye: Present: PERRL. Absent: conjunctival icterus, scleral injection <[facility] 06/11/18 13:48> ENT: Present: mucous membranes moist <Shagufta Rodrigez 06/11/18 13:48> - *Routine Neck Exam Present: supple. Absent: carotid bruit, lymphadenopathy, thyromegaly <Harriet Rodrigezhy 06/11/18 13:48> - *Routine Respiratory Exam Present: accessory muscle use <Harriet Rodrigezhy 06/11/18 13:48> Comments: Distant wheeze audible anteriorly. Diminished breath sounds posteriorly. <[facility] 06/11/18 13:48> - *Routine Cardiovascular Exam Present: RRR <Harriet Rodrigezhy 06/11/18 13:48> - *Routine Abdominal Exam Present: soft, normoactive bowel sounds. Absent: tenderness, distended <Rodrigez,Shagufta 06/11/18 13:48> - *Routine Extremities Exam Present: pulses intact. Absent: edema, calf tenderness <Rodrigez,Shagufta 06/11/18 13:48> Comments: Cyanosis of finger nailbeds <Harriet Rodrigezhy 06/11/18 13:48> - *Routine Skin Exam Present: ecchymosis (Bilateral forearms) <RainShagufta 06/11/18 13:48> - *Routine Neurological Exam Present: alert, oriented X3 <RainShagufta 06/11/18 13:48> Assessment and Plan (1) Acute respiratory failure with hypoxia Current visit: Yes Status: Acute Category: Medical Code(s): J96.01 - Acute respiratory failure with hypoxia (2) Hypertension Current visit: Yes Status: Acute Category: Medical Code(s): I10 - Essential (primary) hypertension (3) COPD (chronic obstructive pulmonary disease) Current visit: Yes Status: Acute Category: Medical Code(s): J44.9 - Chronic obstructive pulmonary disease, unspecified (4) Recurrent pneumonia Current visit: Yes Status: Acute Category: Medical Code(s): J18.9 - Pneumonia, unspecified organism (5) Hip arthritis Current visit: Yes Status: Acute Category: Medical Code(s): M16.10 - Unilateral primary osteoarthritis, unspecified hip (6) Healthcare-associated pneumonia Current visit: Yes Status: Acute Category: Medical Code(s): J18.9 - Pneumonia, unspecified organism (7) Dehydration Current visit: No Status: Acute Category: Medical Code(s): E86.0 - Dehydration (8) Bladder cancer Current visit: Yes Status: Acute Category: Medical Code(s): C67.9 - Malignant neoplasm of bladder, unspecified <Colette Engle 06/12/18 11:39> (1) Hypertension Current visit: Yes Status: Acute Category: Medical Code(s): I10 - Essential (primary) hypertension (2) COPD (chronic obstructive pulmonary disease) Current visit: Yes Status: Acute Category: Medical Code(s): J44.9 - Chronic obstructive pulmonary disease, unspecified (3) Recurrent pneumonia Current visit: Yes Status: Acute Category: Medical Code(s): J18.9 - Pneumonia, unspecified organism (4) Hip arthritis Current visit: Yes Status: Acute Category: Medical Code(s): M16.10 - Unilateral primary osteoarthritis, unspecified hip (5) Acute respiratory failure with hypoxia Current visit: Yes Status: Acute Category: Medical Code(s): J96.01 - Acute respiratory failure with hypoxia (6) Healthcare-associated pneumonia Current visit: Yes Status: Acute Category: Medical Code(s): J18.9 - Pneumonia, unspecified organism (7) Dehydration Current visit: No Status: Acute Category: Medical Code(s): E86.0 - Dehydration (8) Bladder cancer <Shagufta Rodrigez - 06/11/18 16:46> - Assessment and plan all Dx Assessment and Plan for all problems:: will continue IV abx, neb tx, and PO steriods. <Colette Engle 06/12/18 11:39> Patient has been placed on duo nebs and IV antibiotics, cefepime and vancomycin. She will have a CT of abdomen pelvis with contrast. Medication for anxiety and discomfort. <Shagufta Rodrigez - 06/11/18 16:48>
--- NOTE | 2018-06-12 07:47 | Pharmacy Consult Notes ---
[facility] Pharmacy VTE Monitoring - Patient Demographics Admission date: 06/11/18 Report Date: 06/12/18 Time: 07:47 Allergies/Adverse Reactions: Patient Allergies levofloxacin [From LEVAQUIN] Allergy (Intermediate, Verified 08/15/17 13:53) I-RASH codeine [CODEINE] Allergy (Mild, Verified 08/15/17 13:53) DIARRHEA, VOMITING Height: 1.68 m Weight: 50.434 kg Patient Problems: Current Active Problems Healthcare-associated pneumonia (Acute) Acute respiratory failure with hypoxia (Acute) Hypertension (Acute) COPD (chronic obstructive pulmonary disease) (Acute) Recurrent pneumonia (Acute) Hip arthritis (Acute) - VTE Risk Labs: VTE Related Lab Results Hgb 14.4 g/dL (12.2-16.2) 06/11/18 09:55 Hct 44.9 % (37.0-47.0) 06/11/18 09:55 Plt Count 218 K/mm3 (142-424) 06/11/18 09:55 BUN 14 mg/dL (7-18) 06/11/18 09:55 Creatinine 0.85 mg/dL (0.55-1.02) 06/11/18 09:55 Estimated Creat Clear 40 mL/min (50-200) 06/11/18 09:55 Was VTE Risk Assessment Performed: Yes VTE Score: 7 VTE Risk Level: Moderate Risk - Prophylaxis VTE Prophylaxis Ordered?: Yes Types of VTE Prophylaxis: TEDS Knee High, Pharmacological Location of Applied Device: Bilateral Lower Extremeties Pharmacologic Type: Enoxaparin - VTE Diagnosis Confirmed Treatment or plan recommended: Continue Current Treatment
--- NOTE | 2018-06-12 08:05 | Progress Note ---
<Shagufta Rodrigez - Last Filed: 06/12/18 08:02> Internal Medicine - PN: Subj *Date: 06/12/18 *Time: 08:02 Interval history: Patient feeling much better today. She states she actually slept. She notes that she not slept in days before this. Her breathing has improved. She still has a congested cough which she feels it is less. She is not much interested in eating or drinking. She denies nausea and vomiting. She is voiding without difficulty. She denies chest pain. O2 sat been in the 90s and is 93 this a.m. on 4 L per nasal cannula of oxygen Exam Vital signs and Labs for Last 24 Hours: Temp Pulse Resp BP Pulse Ox 97.7 F 86 20 156/93 H 93 L 06/12/18 04:00 06/12/18 06:03 06/12/18 04:00 06/12/18 04:00 06/12/18 06:03 Laboratory Results - last 24 hr 06/11/18 09:53: Specimen Source L brachial, O2 % 4 lpm, ABG pH 7.46 H, ABG pCO2 35.8, ABG pO2 69.8 L, ABG HCO3 25.0, ABG Total CO2 26.1, ABG O2 Saturation 94, ABG Base Excess 1.2 06/11/18 09:55: WBC 14.0 H, RBC 5.35, Hgb 14.4, Hct 44.9, MCV 84.0, MCH 27.0, MCHC 32.1, RDW 16.1, Plt Count 218, MPV 7.6, Neut % (Auto) 89.0 H, Lymph % (Auto) 6.8 L, Keith % (Auto) 3.7, Eos % (Auto) 0.2, Baso % (Auto) 0.3, Neut # (Auto) 12.4 H, Lymph # (Auto) 0.9, Keith # (Auto) 0.5, Eos # (Auto) 0.0, Baso # (Auto) 0.0, Total Counted 100, Neutrophils % (Manual) 88 H, Lymphocytes % (Manual) 7 L, Monocytes % (Manual) 5, Platelet Estimate Normal, Hypochromasia 1+ 06/11/18 09:55: Sodium 132 L, Potassium 3.4 L, Chloride 94 L, Carbon Dioxide 26, Anion Gap 15.4 H, BUN 14, Creatinine 0.85, Estimated Creat Clear 40, Estimated GFR 66, Est GFR ( Amer) 80, Glucose 121 H, Calcium 9.9, Troponin I < 0.02 06/11/18 09:55: Total Bilirubin 0.9, Direct Bilirubin 0.3 H, Indirect Bilirubin 0.6, AST 18, ALT 14, Alkaline Phosphatase 117 H, Total Protein 7.1, Albumin 3.1 L 06/11/18 09:55: B-Natriuretic Peptide 563 H 06/11/18 10:37: Lactate 2.9 H 06/11/18 15:07: Lactate 2.5 H 06/11/18 18:00: Lactate 3.2 H I & O for Last 24 hours: Intake & Output 06/09/18 06/10/18 06/11/18 06/12/18 11:59 11:59 11:59 11:59 Intake Total 919 / 919 Output Total 1000 / 1000 Balance -81 / -81 Weight 110 lb 111 lb 3 oz Radiology Reports for the Last 24 Hours: 2018 CT of/pelvis with contrast IMPRESSION: 1. Bilateral pleural effusions with pulmonary fibrosis and consolidation in the lung bases posteriorly 2. Cholelithiasis. 3. Bilateral inguinal hernias containing small bowel loops without structures. 4. 4 cm abdominal aortic aneurysm. 5. Severe osteoarthritis of left hip - Constitutional no acute distress Comments: Patient is able to sit today in full sentence and speech is clear. Color has improved. Awakened for assessment and appears comfortable - *Routine Respiratory Exam Absent: accessory muscle use Comments: Expiratory wheezing throughout; long expiratory phase; decreased breath sounds in the right base. Bilateral basilar crackles - *Routine Cardiovascular Exam Present: RRR - *Routine Abdominal Exam Present: soft, normoactive bowel sounds. Absent: tenderness - *Routine Extremities Exam Absent: edema Comments: Bilateral calf tenderness. - *Routine Neurological Exam Present: alert, oriented X3, normal speech Assessment and Plan (1) Hypertension Current visit: Yes Status: Acute Category: Medical Code(s): I10 - Essential (primary) hypertension (2) COPD (chronic obstructive pulmonary disease) Current visit: Yes Status: Acute Category: Medical Code(s): J44.9 - Chronic obstructive pulmonary disease, unspecified (3) Recurrent pneumonia Current visit: Yes Status: Acute Category: Medical Code(s): J18.9 - Pneumonia, unspecified organism (4) Hip arthritis Current visit: Yes Status: Acute Category: Medical Code(s): M16.10 - Unilateral primary osteoarthritis, unspecified hip (5) Acute respiratory failure with hypoxia Current visit: Yes Status: Acute Category: Medical Code(s): J96.01 - Acute respiratory failure with hypoxia (6) Healthcare-associated pneumonia Current visit: Yes Status: Acute Category: Medical Code(s): J18.9 - Pneumonia, unspecified organism (7) Dehydration Current visit: No Status: Acute Category: Medical Code(s): E86.0 - Dehydration (8) Bladder cancer Current visit: Yes Status: Acute Category: Medical Code(s): C67.9 - Malignant neoplasm of bladder, unspecified - Assessment and plan all Dx Assessment and Plan for all problems:: Patient has definitely improved overnight. Continue with duo nebs and antibiotics. Will consider steroids. Repeat CBC this a.m. <Colette Engle - Last Filed: 06/12/18 11:41> Exam Vital signs and Labs for Last 24 Hours: Temp Pulse Resp BP Pulse Ox 98.3 F 90 18 156/87 H 97 06/12/18 11:19 06/12/18 11:19 06/12/18 11:19 06/12/18 11:19 06/12/18 11:19 Laboratory Results - last 24 hr 06/11/18 15:07: Lactate 2.5 H 06/11/18 18:00: Lactate 3.2 H 06/12/18 08:21: WBC 9.8 D, RBC 4.53, Hgb 12.2 D, Hct 38.0, MCV 83.9, MCH 26.8 L, MCHC 31.9, RDW 16.1, Plt Count 216, MPV 8.0, Neut % (Auto) 86.5 H, Lymph % (Auto) 6.9 L, Keith % (Auto) 5.5, Eos % (Auto) 0.9, Baso % (Auto) 0.2, Neut # (Auto) 8.5 H, Lymph # (Auto) 0.7, Keith # (Auto) 0.5, Eos # (Auto) 0.1, Baso # (Auto) 0.0, Total Counted 100, Neutrophils % (Manual) 89 H, Band Neutrophils % 2.0, Lymphocytes % (Manual) 3 L, Atypical Lymphs % 1.0, Monocytes % (Manual) 5, Platelet Estimate Normal, RBC Morphology Normal I & O for Last 24 hours: Intake & Output 06/09/18 06/10/18 06/11/18 06/12/18 11:59 11:59 11:59 11:59 Intake Total 1039 / 1039 Output Total 1000 / 1000 Balance 39 / 39 Weight 110 lb 111 lb 3 oz Assessment and Plan (1) Acute respiratory failure with hypoxia Current visit: Yes Status: Acute Category: Medical Code(s): J96.01 - Acute respiratory failure with hypoxia (2) Hypertension Current visit: Yes Status: Acute Category: Medical Code(s): I10 - Essen tial (primary) hypertension (3) COPD (chronic obstructive pulmonary disease) Current visit: Yes Status: Acute Category: Medical Code(s): J44.9 - Chronic obstructive pulmonary disease, unspecified (4) Recurrent pneumonia Current visit: Yes Status: Acute Category: Medical Code(s): J18.9 - Pneumonia, unspecified organism (5) Hip arthritis Current visit: Yes Status: Acute Category: Medical Code(s): M16.10 - Unilateral primary osteoarthritis, unspecified hip (6) Healthcare-associated pneumonia Current visit: Yes Status: Acute Category: Medical Code(s): J18.9 - Pneumonia, unspecified organism (7) Dehydration Current visit: No Status: Acute Category: Medical Code(s): E86.0 - Dehydration (8) Bladder cancer Current visit: Yes Status: Acute Category: Medical Code(s): C67.9 - Malignant neoplasm of bladder, unspecified - Assessment and plan all Dx Assessment and Plan for all problems:: will continue current management; will attempt to have another conversation today.
[2018-06-12 08:35] LABS: Basophils % 0.2 % (0.1-2.0); Eosinophils # 0.1 K/mm3 (0.0-0.4); Eosinophils % 0.9 % (0.1-12.0); Lymphocytes # 0.7 K/mm3 (0.7-4.5); Lymphocytes % 6.9 % (10-50); Mean Corpuscular HGB Conc 31.9 g/dL (31.8-35.4); Mean Corpuscular Hemoglobin 26.8 pg (27.0-31.2); Mean Corpuscular Volume 83.9 fl (81-99); Monocytes # 0.5 K/mm3 (0.1-1.0); Monocytes % 5.5 % (1.7-9.3); Neutrophils # 8.5 K/mm3 (1.8-7.8); Neutrophils % 86.5 % (37.0-80.0); Platelet Count 216 K/mm3 (142-424); Red Blood Count 4.53 M/mm3 (4.20-5.40); Red Cell Distribution Width 16.1 % (11.5-17.5); White Blood Count 9.8 K/mm3 (4.8-10.8)
[2018-06-12 08:58] LABS: Hemoglobin 12.2 g/dL (12.2-16.2)
[2018-06-12 09:17] LABS: Lymphocytes % 3 % (10-50); Monocytes % 5 % (2-9); Neutrophils % 89 % (42-76); RBC Morphology Normal; Total Cells Counted 100
--- NOTE | 2018-06-13 08:42 | Progress Note ---
<Ting Hogan - Last Filed: 06/13/18 08:39> Internal Medicine - PN: Subj *Date: 06/13/18 *Time: 08:39 Interval history: Patient states she slept good last night with her "sleeping pill." She was a little confused this morning when she woke up but felt better after a good night sleep. She still very short of breath and coughing so hard her ribs hurt. She is concerned about discharge. She states she is unable to stay in her home, however she cannot leave her son who has schizophrenia. Exam Vital signs and Labs for Last 24 Hours: Temp Pulse Resp BP Pulse Ox 97.8 F 87 17 138/83 93 L 06/13/18 03:54 06/13/18 06:31 06/13/18 03:54 06/13/18 03:54 06/13/18 06:31 Laboratory Results - last 24 hr 06/12/18 08:21: WBC 9.8 D, RBC 4.53, Hgb 12.2 D, Hct 38.0, MCV 83.9, MCH 26.8 L, MCHC 31.9, RDW 16.1, Plt Count 216, MPV 8.0, Neut % (Auto) 86.5 H, Lymph % (Auto) 6.9 L, Nolan % (Auto) 5.5, Eos % (Auto) 0.9, Baso % (Auto) 0.2, Neut # (Auto) 8.5 H, Lymph # (Auto) 0.7, Nolan # (Auto) 0.5, Eos # (Auto) 0.1, Baso # (Auto) 0.0, Total Counted 100, Neutrophils % (Manual) 89 H, Band Neutrophils % 2.0, Lymphocytes % (Manual) 3 L, Atypical Lymphs % 1.0, Monocytes % (Manual) 5, Platelet Estimate Normal, RBC Morphology Normal 06/12/18 19:40: Stl Aeromonas (PCR) Not detected, Stl C. cayetanensis PCR Not detected, Stool Rotavirus (PCR) Not detected, Stl Adenov F 40/41 PCR Not detect ed, Stool Astrovirus (PCR) Not detected, Stool Campylobacter PCR Not detected, Stl C.difficile Tox PCR Not detected, Stool Cryptosporidium PCR Not detected, Stl E.coli Shiga Tox PCR Not detected, Stool E coli O157 PCR Not detected, Stl Enterotoxigenic E PCR Not detected, Stool EPEC (PCR) Not detected, Stool EAEC (PCR) Not detected, Stl E. histolytica PCR Not detected, Stool Giardia Lamblia PCR Not detected, Stool Salmonella PCR Not detected, Stool Sapovirus (PCR) Not detected, Stl P. shigelloides PCR Not detected, Stl Shigella/EIEC PCR Not detected, St Y.enterocolitica PCR Not detected, Stool Vibrio (PCR) Not detected, Stl Vibrio cholerae PCR Not detected, Stl Norovirus GI/GII PCR Not detected I & O for Last 24 hours: Intake & Output 06/10/18 06/11/18 06/12/18 06/13/18 11:59 11:59 11:59 11:59 Intake Total 1039 / 1039 2303 / 2303 Output Total 1000 / 1000 700 / 700 Balance 39 / 39 1603 / 1603 Weight 110 lb 111 lb 3 oz 111 lb 3.007 oz Microbiology Reports for the Last 24 Hours: Microbiology 06/12/18 11:07 Sputum - Expectorated Sputum Gram Stain - Final 06/12/18 11:07 Sputum - Expectorated Sputum Sputum Culture - Preliminary - Constitutional no acute distress - *Routine Respiratory Exam Present: rhonchi, wheezes - *Routine Cardiovascular Exam Present: RRR - *Routine Abdominal Exam Present: soft, normoactive bowel sounds. Absent: tenderness - *Routine Extremities Exam Absent: cyanosis, clubbing, edema Assessment and Plan (1) Acute respiratory failure with hypoxia Current visit: Yes Status: Acute Category: Medical Code(s): J96.01 - Acute respiratory failure with hypoxia (2) Hypertension Current visit: Yes Status: Acute Category: Medical Code(s): I10 - Essential (primary) hypertension (3) COPD (chronic obstructive pulmonary disease) Current visit: Yes Status: Acute Category: Medical Code(s): J44.9 - Chronic obstructive pulmonary disease, unspecified (4) Recurrent pneumonia Current visit: Yes Status: Acute Category: Medical Code(s): J18.9 - Pneumonia, unspecified organism (5) Hip arthritis Current visit: Yes Status: Acute Category: Medical Code(s): M16.10 - Unilateral primary osteoarthritis, unspecified hip (6) Healthcare-associated pneumonia Current visit: Yes Status: Acute Category: Medical Code(s): J18.9 - Pneumonia, unspecified organism (7) Dehydration Current visit: No Status: Acute Category: Medical Code(s): E86.0 - Dehydration (8) Bladder cancer Current visit: Yes Status: Acute Category: Medical Code(s): C67.9 - Malignant neoplasm of bladder, unspecified - Assessment and plan all Dx Assessment and Plan for all problems:: Care management is going to speak with the patient. Will discuss further care with Dr. Engle. <Colette Engle - Last Filed: 06/13/18 08:58> Exam Vital signs and Labs for Last 24 Hours: Temp Pulse Resp BP Pulse Ox 97.8 F 87 17 138/83 93 L 06/13/18 03:54 06/13/18 06:31 06/13/18 03:54 06/13/18 03:54 06/13/18 06:31 Laboratory Results - last 24 hr 06/12/18 08:21: WBC 9.8 D, RBC 4.53, Hgb 12.2 D, Hct 38.0, MCV 83.9, MCH 26.8 L, MCHC 31.9, RDW 16.1, Plt Count 216, MPV 8.0, Neut % (Auto) 86.5 H, Lymph % (Auto) 6.9 L, Nolan % (Auto) 5.5, Eos % (Auto) 0.9, Baso % (Auto) 0.2, Neut # (Auto) 8.5 H, Lymph # (Auto) 0.7, Nolan # (Auto) 0.5, Eos # (Auto) 0.1, Baso # (Auto) 0.0, Total Counted 100, Neutrophils % (Manual) 89 H, Band Neutrophils % 2.0, Lymphocytes % (Manual) 3 L, Atypical Lymphs % 1.0, Monocytes % (Manual) 5, Platelet Estimate Normal, RBC Morphology Normal 06/12/18 19:40: Stl Aeromonas (PCR) Not detected, Stl C. cayetanensis PCR Not detected, Stool Rotavirus (PCR) Not detected, Stl Adenov F 40/41 PCR Not detected, Stool Astrovirus (PCR) Not detected, Stool Campylobacter PCR Not detected, Stl C.difficile Tox PCR Not detected, Stool Cryptosporidium PCR Not detected, Stl E.coli Shiga Tox PCR Not detected, Stool E coli O157 PCR Not detected, Stl Enterotoxigenic E PCR Not detected, Stool EPEC (PCR) Not detected, Stool EAEC (PCR) Not detected, Stl E. histolytica PCR Not detected, Stool Giardi a Lamblia PCR Not detected, Stool Salmonella PCR Not detected, Stool Sapovirus (PCR) Not detected, Stl P. shigelloides PCR Not detected, Stl Shigella/EIEC PCR Not detected, St Y.enterocolitica PCR Not detected, Stool Vibrio (PCR) Not detected, Stl Vibrio cholerae PCR Not detected, Stl Norovirus GI/GII PCR Not detected I & O for Last 24 hours: Intake & Output 06/10/18 06/11/18 06/12/18 06/13/18 11:59 11:59 11:59 11:59 Intake Total 1039 / 1039 2303 / 2303 Output Total 1000 / 1000 700 / 700 Balance 39 / 39 1603 / 1603 Weight 110 lb 111 lb 3 oz 111 lb 3.007 oz Microbiology Reports for the Last 24 Hours: Microbiology 06/12/18 11:07 Sputum - Expectorated Sputum Gram Stain - Final 06/12/18 11:07 Sputum - Expectorated Sputum Sputum Culture - Preliminary Assessment and Plan (1) Acute respiratory failure with hypoxia Current visit: Yes Status: Acute Category: Medical Code(s): J96.01 - Acute respiratory failure with hypoxia (2) Hypertension Current visit: Yes Status: Acute Category: Medical Code(s): I10 - Essential (primary) hypertension (3) COPD (chronic obstructive pulmonary disease) Current visit: Yes Status: Acute Category: Medical Code(s): J44.9 - Chronic obstructive pulmonary disease, unspecified (4) Recurrent pneumonia Current visit: Yes Status: Acute Category: Medical Code(s): J18.9 - Pneumonia, unspecified organism (5) Hip arthritis Current visit: Yes Status: Acute Category: Medical Code(s): M16.10 - Unilateral primary osteoarthritis, unspecified hip (6) Healthcare-associated pneumonia Current visit: Yes Status: Acute Category: Medical Code(s): J18.9 - Pneumonia, unspecified organism (7) Dehydration Current visit: No Status: Acute Category: Medical Code(s): E86.0 - Dehydration (8) Bladder cancer Current visit: Yes Status: Acute Category: Medical Code(s): C67.9 - Malignant neoplasm of bladder, unspecified - Assessment and plan all Dx Assessment and Plan for all problems:: will get PT started and get her qualify for home oxygen. Possible discharge home tomorrow with home health.
--- NOTE | 2018-06-14 08:32 | Progress Note ---
<Ting Hogan - Last Filed: 06/14/18 08:30> Internal Medicine - PN: Subj *Date: 06/14/18 *Time: 08:30 Interval history: Patient states she is feeling a little bit better this morning. She is still short of breath and wheezing. She still has a cough. She slept a little bit better last night and is getting ready to get up in the chair to eat breakfast this morning. Exam Vital signs and Labs for Last 24 Hours: Temp Pulse Resp BP Pulse Ox 97.7 F 83 20 143/83 H 90 L 06/14/18 04:00 06/14/18 06:57 06/14/18 04:00 06/14/18 04:00 06/14/18 06:57 Laboratory Results - last 24 hr 06/13/18 10:40: Vancomycin Trough 5.1 L I & O for Last 24 hours: Intake & Output 06/11/18 06/12/18 06/13/18 06/14/18 11:59 11:59 11:59 11:59 Intake Total 1039 / 1039 2543 / 2543 1635 / 1635 Output Total 1000 / 1000 700 / 700 900 / 900 Balance 39 / 39 1843 / 1843 735 / 735 Weight 110 lb 111 lb 3 oz 111 lb 3.007 oz Microbiology Reports for the Last 24 Hours: Microbiology 06/12/18 11:07 Sputum - Expectorated Sputum Gram Stain - Final 06/12/18 11:07 Sputum - Expectorated Sputum Sputum Culture - Final Normal Respiratory Charlotte 06/11/18 10:37 Blood Blood Culture - Preliminary NO GROWTH AFTER 48 HOURS 06/11/18 10:37 Blood Blood Culture - Preliminary NO GROWTH AFTER 48 HOURS - Constitutional no acute distress - *Routine Respiratory Exam Present: rhonchi, wheezes - *Routine Cardiovascular Exam Present: RRR - *Routine Abdominal Exam Present: soft, normoactive bowel sounds. Absent: tenderness - *Routine Extremities Exam Absent: cyanosis, clubbing, edema Assessment and Plan (1) Acute respiratory failure with hypoxia Current visit: Yes Status: Acute Category: Medical Code(s): J96.01 - Acute respiratory failure with hypoxia (2) Hypertension Current visit: Yes Status: Acute Category: Medical Code(s): I10 - Essential (primary) hypertension (3) COPD (chronic obstructive pulmonary disease) Current visit: Yes Status: Acute Category: Medical Code(s): J44.9 - Chronic obstructive pulmonary disease, unspecified (4) Recurrent pneumonia Current visit: Yes Status: Acute Category: Medical Code(s): J18.9 - Pneumonia, unspecified organism (5) Hip arthritis Current visit: Yes Status: Acute Category: Medical Code(s): M16.10 - Unilateral primary osteoarthritis, unspecified hip (6) Healthcare-associated pneumonia Current visit: Yes Status: Acute Category: Medical Code(s): J18.9 - Pneumonia, unspecified organism (7) Dehydration Current visit: No Status: Acute Category: Medical Code(s): E86.0 - Dehydration (8) Bladder cancer Current visit: Yes Status: Acute Category: Medical Code(s): C67.9 - Malignant neoplasm of bladder, unspecified - Assessment and plan all Dx Assessment and Plan for all problems:: Will discuss further care with Dr. harrison. <Colette Harrison - Last Filed: 06/14/18 10:06> Exam Vital signs and Labs for Last 24 Hours: Temp Pulse Resp BP Pulse Ox 97.7 F 104 H 22 162/94 H 97 06/14/18 08:00 06/14/18 08:00 06/14/18 08:00 06/14/18 08:00 06/14/18 08:00 Laboratory Results - last 24 hr 06/13/18 10:40: Vancomycin Trough 5.1 L I & O for Last 24 hours: Intake & Output 06/11/18 06/12/18 06/13/18 06/14/18 11:59 11:59 11:59 11:59 Intake Total 1039 / 1039 2543 / 2543 1875 / 1875 Output Total 1000 / 1000 700 / 700 900 / 900 Balance 39 / 39 1843 / 1843 975 / 975 Weight 110 lb 111 lb 3 oz 111 lb 3.007 oz Microbiology Reports for the Last 24 Hours: Microbiology 06/12/18 11:07 Sputum - Expectorated Sputum Gram Stain - Final 06/12/18 11:07 Sputum - Expectorated Sputum Sputum Culture - Final Normal Respiratory Charlotte 06/11/18 10:37 Blood Blood Culture - Preliminary NO GROWTH AFTER 48 HOURS 06/11/18 10:37 Blood Blood Culture - Preliminary NO GROWTH AFTER 48 HOURS Assessment and Plan (1) Acute respiratory failure with hypoxia Current visit: Yes Status: Acute Category: Medical Code(s): J96.01 - Acute respiratory failure with hypoxia (2) Hypertension Current visit: Yes Status: Acute Category: Medical Code(s): I10 - Essential (primary) hypertension (3) COPD (chronic obstructive pulmonary disease) Current visit: Yes Status: Acute Category: Medical Code(s): J44.9 - Chronic obstructive pulmonary disease, unspecified (4) Hip arthritis Current visit: Yes Status: Acute Category: Medical Code(s): M16.10 - Unilateral primary osteoarthritis, unspecified hip (5) Dehydration Current visit: No Status: Acute Category: Medical Code(s): E86.0 - Dehydration (6) Bladder cancer Current visit: Yes Status: Acute Category: Medical Code(s): C67.9 - Malignant neoplasm of bladder, unspecified (7) Severe protein-calorie malnutrition Current visit: Yes Status: Acute Category: Medical Code(s): E43 - Unspecified severe protein-calorie malnutrition (8) Cachexia Current visit: Yes Status: Acute Category: Medical Code(s): R64 - Cachexia - Assessment and plan all Dx Assessment and Plan for all problems:: will dc home with home health and supplemental oxygen. Advised to f/u with her PCP Dr. Agustin Wilburn In [place] for planning on her bladder cancer. She voiced understanding.
--- NOTE | 2018-06-14 14:40 | Discharge Summary ---
General - General Admission date:: 06/11/18 Discharge date: 06/14/18 HPI HPI: Ms. 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 She relates that the cough has been present for a long time and is productive of sputum but no hemoptysis. She denies chest pain or fever, vomiting or diarrhea. She generally feels weak and tired. She states she has not been eating and drinking very well for the last few weeks. She was seen in this emergency department on 03/31/18 and transferred to [facility]. She had pneumonia, pleural effusion, pericardial effusion. She says that the fluid was drained off of her heart. She was diagnosed with bladder cancer. She is not certain whether she has any metastases to heart/pericardium or lung. She says she was supposed to have her first dose of chemotherapy yesterday, but could not because she was too sick. She is going to the [facility] [place]. Her primary care doctor is Dr. Wilburn in [place]. No leg pain or swelling. No urinary symptoms. The ER physician discussed diagnosis of pneumonia with the patient and recommended admission. Initially she preferred to be discharged. She was advised that she had a hospital associated pneumonia and needed to be treated as an inpatient with IV antibiotics. Her oxygen was removed temporarily and O2 saturation dropped to 84%. She was then agreeable to admission. Discharge summary was obtained from [facility]. Final diagnoses were pericardial effusion and protein energy malnutrition. CT chest was negative. Autoimmune workup was negative. She had an episode of atrial fibrillation with rapid ventricular response. Pericardiocentesis was performed and she had a drain placed which was later removed. Fluid on cytology was positive for adenocarcinoma versus transitional cell. She was hospitalized for 6 days. At the time of this exam the patient has labored respiratory effort. She is unable to speak at times due to the shortness of breath. The congested cough was noted. She denies chest pain, heart palpitations, leg edema, nausea and vomiting. She has been voiding without difficulty. Hospital Course Hospital Course: The patient had a CTA which showed no evidence of PE or thoracic aortic aneurysm. It did show a 3.5 cm infrarenal abdominal aortic aneurysm and there was progression of pulmonary fibrosis with some trilobar and aly lobar emphysema. There was an increased density in the peribronchial region in the hilar area on both sides which could be inflammatory or neoplastic. There was a medium right pleural effusion with consolidation in both lung bases and an enlarging pleural-based lesion in the left upper lobe with some cavitation. Radiology felt this could be neoplastic versus infectious. She was started on IV cefepime and vancomycin. She was started on duo nebs and p.o. steroids. She was started on medication for anxiety and a CT of the abdomen and pelvis was ordered. It showed bilateral pleural effusions with pulmonary fibrosis and consolidation in the lung bases, cholelithiasis, bilateral inguinal hernias, a 4 cm abdominal aortic aneurysm, and severe osteoarthritis of the left hip. The patient's symptoms did improve and she became slightly less short of breath and was able to rest. She continued with a congested cough. Her oxygen was in the low 90s on 4 L of oxygen. She ate only a small amount stating she was not hungry. Of note her BMI was 17.9 and she was severely cachectic secondary to her cancer diagnosis. Her white blood cell count normalized. She had a diarrhea panel that was negative. 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 She states she cannot go to a nursing facility due to having a son with schizophrenia who lives with her. Care management did have a conversation with the patient about discharge. She was able to qualify for home oxygen. She began eating a little bit better and was stable to be discharged home with home health and supplemental oxygen. She will need to follow-up with her primary care physician Dr. Wilburn in [place] in order to plan treatment for her bladder cancer. Objective Vital signs: Temp Pulse Resp BP Pulse Ox 97.7 F 104 H 22 162/94 H 76 L 06/14/18 08:00 06/14/18 08:00 06/14/18 08:00 06/14/18 08:00 06/14/18 10:23 Narrative: - Constitutional no acute distress, thin Comments: Frail - *Routine HEENT Exam Head: Present: normocephalic, atraumatic Eye: Present: PERRL. Absent: conjunctival icterus, scleral injection ENT: Present: mucous membranes moist - *Routine Neck Exam Present: supple. Absent: carotid bruit, lymphadenopathy, thyromegaly - *Routine Respiratory Exam Present: accessory muscle use Comments: Distant wheeze audible anteriorly. Diminished breath sounds posteriorly. - *Routine Cardiovascular Exam Present: RRR - *Routine Abdominal Exam Present: soft, normoactive bowel sounds. Absent: tenderness, distended - *Routine Extremities Exam Present: pulses intact. Absent: edema, calf tenderness Comments: Cyanosis of finger nailbeds - *Routine Skin Exam Present: ecchymosis (Bilateral forearms) - *Routine Neurological Exam Present: alert, oriented X3 Results Labs on day of discharge: Preliminary micro results at discharge 06/11/18 10:37 Blood Culture - Preliminary Blood NO GROWTH AFTER 48 HOURS 06/11/18 10:37 Blood Culture - Preliminary Blood NO GROWTH AFTER 48 HOURS DS: Diagnosis - Discharge Diagnosis (1) Acute respiratory failure with hypoxia Status: Acute (2) Hypertension Status: Acute (3) COPD (chronic obstructive pulmonary disease) Status: Acute (4) Hip arthritis Status: Acute (5) Dehydration Status: Acute (6) Bladder cancer Status: Acute (7) Severe protein-calorie malnutrition Status: Acute (8) Cachexia Status: Acute Discharge Plan - Patient Discharge Instructions ACTIVITY: Continue current activity DIET: continue same diet Patient Instructions: DI for Pneumonia -- Adult, DI for Respiratory Failure - Follow up Plan Unknown provider or service follow up:: 06/14/18 10:06 Dr. Agustin Wilburn in 1 week. Disposition: Home Health Service Home Medications: Home Medications Medication Instructions Recorded Confirmed Type Clopidogrel Bisulfate [Plavix 75mg 75 mg PO HS 08/06/17 06/12/18 History Tab] Lisinopril/Hydrochlorothiazide 1 tab PO DAILY 08/06/17 06/11/18 History [Lisinopril-Hctz 10-12.5 mg Tab] Trazodone HCl [Desyrel 50mg tablet] 50 mg PO HS PRN 08/06/17 06/11/18 History Atenolol [Atenolol 25mg Tab] 25 mg PO DAILY 06/11/18 06/11/18 History Atorvastatin Calcium [Atorvastatin 40 mg PO HS 06/11/18 06/12/18 History 40mg Tab] Dexlansoprazole [Dexilant] 30 mg PO DAILY 06/11/18 06/11/18 History Montelukast Sodium [Montelukast 10 mg PO DAILY 06/11/18 06/11/18 History 10mg Tab] Pantoprazole Sodium [Protonix 40mg 40 mg PO DAILY 06/11/18 06/11/18 History tablet] Umeclidinium Brm/Vilanterol Tr 1 inh IH DAILY 06/11/18 06/11/18 History [Anoro Ellipta 62.5-25 Mcg INH] Venlafaxine HCl [Effexor Xr] 150 mg PO DAILY 06/11/18 06/11/18 History hydrOXYzine pamoate [Vistaril] 25 mg PO BIDP PRN 06/11/18 06/12/18 History Hydrocod/Acet 5/325 mg [[place] 1 each PO TIDP PRN 06/12/18 06/12/18 History 5/325mg tablet] diazePAM [Valium] 2 mg PO DAILYP PRN 06/12/18 06/12/18 History Miscellaneous Medical Supply 1 each IH PM #1 device 06/14/18 Rx [Oxygen, Portable] Prescriptions/Medication Reconciliation: New Miscellaneous Medical Supply [Oxygen, Portable] 1 each IH PM #1 device Continue Clopidogrel Bisulfate [Plavix 75mg Tab] 75 mg PO HS Trazodone HCl [Desyrel 50mg tablet] 50 mg PO HS PRN PRN Reason: Sleep Pantoprazole Sodium [Protonix 40mg tablet] 40 mg PO DAILY Atorvastatin Calcium [Atorvastatin 40mg Tab] 40 mg PO HS Dexlansoprazole [Dexilant] 30 mg PO DAILY Atenolol [Atenolol 25mg Tab] 25 mg PO DAILY hydrOXYzine pamoate [Vistaril] 25 mg PO BIDP PRN PRN Reason: Anxiety Venlafaxine HCl [Effexor Xr] 150 mg PO DAILY Umeclidinium Brm/Vilanterol Tr [Anoro Ellipta 62.5-25 Mcg INH] 1 inh IH DAILY diazePAM [Valium] 2 mg PO DAILYP PRN PRN Reason: Anxiety Hydrocod/Acet 5/325 mg [[place] 5/325mg tablet] 1 each PO TIDP PRN PRN Reason: PAIN Lisinopril/Hydrochlorothiazide [Lisinopril-Hctz 10-12.5 mg Tab] 1 tab PO DAILY Montelukast Sodium [Montelukast 10mg Tab] 10 mg PO DAILY
== END 2018-06-14 11:46 | disposition home health service (06) | DRG 189 ==
LOC: ER 09:50 → 2ND 12:18
PROVIDERS: ADMIT Emergency Medicine; ATTEND Emergency Medicine
CPT/HCPCS: 36415; 71010; 71045; 71275; 74177; 80048; 80076; 80202; 82803; 83605; 83880; 84484; 85007; 85025; 87040; 87070; 87205; 87507; 93005; 94640; 94761; 96365; 96367; 96372; 97163; 99285; J3370; Q9967